=== PATIENT | male | born 1945 | race Caucasian/White ===

== ENCOUNTER 2021-09-26 20:58 | Inpatient (IN) ==
[2021-09-26 21:57] LABS: Hemoglobin 8.1 g/dL (12.9-16.9); Mean Corpuscular Volume 103.7 fL (83.0-100.0); Nucleated Red Blood Cells 0.1 /100 WBC (0)
[2021-09-26 21:59] LABS: Hematocrit 25.4 % (37.5-50.1); Immature Platelets 9.2 % (1.1-6.1); Mean Corpuscular HGB Conc 31.9 g/dL (31.6-35.5); Mean Corpuscular Hemoglobin 33.1 pg (28.0-33.3); Mean Platelet Volume 11.2 fL (9.4-12.4); Red Blood Count 2.45 M/mcL (4.19-5.50)
[2021-09-26 22:04] LABS: INR 1.3
[2021-09-26 22:07] LABS: Activated Partial Thrombo Time 35.9 Seconds (26.0-36.0)
[2021-09-26 22:22] LABS: Platelet Count 62 K/mcL (140-400)
[2021-09-26 22:24] LABS: Albumin/Globulin Ratio 0.9 (1.1-2.2); Bilirubin,Direct 0.1 mg/dL (0.0-0.2); Bilirubin,Indirect 0.4 mg/dL (0.0-1.0); Bilirubin,Total 0.5 mg/dL (0.3-1.0); Globulin 3.3 g/dL (2.4-3.5); Potassium 3.7 mEq/L (3.5-5.1); Total Protein 6.3 g/dL (6.4-8.9); Troponin I 0.08 ng/mL (< 0.04); White Blood Count 63.1 K/mcL (4.3-11.1)
[2021-09-26 22:26] LABS: Lymphocytes # 6.3 K/mcL (0.6-4.6); Monocytes # 1.9 K/mcL (0.0-1.3); Neutrophils # 53.6 K/mcL (1.6-8.9)
[2021-09-26 22:27] LABS: Smudge Cells Present (Not Present)
[2021-09-26 22:28] LABS: Platelet Estimate Decreased (Normal)
[2021-09-26] MEDS ORDERED: Vancomycin 1,500 MG/265 ML IV.SOLN IVPB ONE (22:32)
[2021-09-26] MEDS ORDERED: Isovue-370 500 ML BOTTLE IVP ONE (22:34)
[2021-09-26] MEDS ORDERED: Cefepime HCl 2,000 MG in 0.9 % Sodium Chloride Mini Bag 100 ML IVPB ONE (23:00)
[2021-09-27] MEDS ORDERED: Melatonin 3 MG TABLET PO PRN (02:15)
[2021-09-27] MEDS ORDERED: Naloxone 0.4 MG/ML INJ IVP PRN (02:15)
[2021-09-27] MEDS ORDERED: Ondansetron ODT 4 MG TAB.RAPDIS SL PRN (02:15)
[2021-09-27] MEDS ORDERED: Acetaminophen 325 MG TABLET PO PRN (02:16)
[2021-09-27] MEDS ORDERED: 0.9 % Sodium Chloride 1,000 ML IVC SCH (02:30)
[2021-09-27] MEDS ORDERED: *HR* Dextrose 50 % in Water (Syg) 50 ML SYRINGE IVP PRN (03:51)
[2021-09-27] MEDS ORDERED: D5% in Water 1,000 ML IVC PRN (03:51)
[2021-09-27] MEDS ORDERED: Dextrose Gel 15 GM/37.5 ML TUBE PO PRN ×2 (03:51)
[2021-09-27 03:53] LABS: Hemoglobin 7.9 g/dL (12.9-16.9); Nucleated Red Blood Cells 0.2 /100 WBC (0); Red Cell Distribution Width 15.2 % (11.5-14.5)
[2021-09-27 03:55] LABS: Hematocrit 24.3 % (37.5-50.1); Immature Platelets 8.7 % (1.1-6.1); Mean Corpuscular HGB Conc 32.5 g/dL (31.6-35.5); Mean Corpuscular Hemoglobin 33.9 pg (28.0-33.3); Mean Corpuscular Volume 104.3 fL (83.0-100.0); Red Blood Count 2.33 M/mcL (4.19-5.50)
[2021-09-27] MEDS ORDERED: Insulin LISPRO 300 UNITS/3 ML VIAL SUBQ SCH ×3 (04:00→07:30)
[2021-09-27 04:12] LABS: Magnesium 1.5 mg/dL (1.6-2.6); Phosphorous 2.4 mg/dL (2.7-4.5)
[2021-09-27 04:13] LABS: Calcium 8.7 mg/dL (8.6-10.3); Potassium 3.6 mEq/L (3.5-5.1); White Blood Count 58.9 K/mcL (4.3-11.1)
[2021-09-27 04:14] LABS: Platelet Count 63 K/mcL (140-400)
[2021-09-27] MEDS ORDERED: 0.9 % Sodium Chloride 500 ML IVC PRN (04:15)
[2021-09-27] MEDS ORDERED: Magnesium Sulfate 1 GM/102 ML PIGGYBACK IVPB ONE (04:15)
[2021-09-27 04:25] LABS: Platelet Estimate Decreased (Normal)
[2021-09-27 04:26] LABS: Lymphocytes # 4.7 K/mcL (0.6-4.6); Monocytes # 2.4 K/mcL (0.0-1.3); Neutrophils # 51.8 K/mcL (1.6-8.9)
[2021-09-27 04:43] LABS: Bilirubin,Urine Negative (Negative); Blood,Urine Moderate (Negative); Clarity,Urine Clear (Clear); Color,Urine Light-Yellow (Yellow); Glucose,Urine (UA) Normal (Normal); Ketones,Urine Negative (Negative); Leukocyte Esterase,Urine Negative (Negative); Mucus,Urine Few per lpf (None-Few); Nitrite,Urine Negative (Negative); PH,Urine 7.5 pH Units (5.0-8.0); Protein,Urine Negative (Neg-Trace); RBC,Urine 15-30 per hpf (0-3); Specific Gravity,Urine 1.026 (1.010-1.025); Urobilinogen,Urine Normal (Normal)
[2021-09-27] MEDS ORDERED: Cefepime HCl 2,000 MG in 0.9 % Sodium Chloride 10 ML IVP SCH (06:00)
[2021-09-27 06:51] VITALS: BP 143/61; PULSE 99; TEMP 98.3; O2SAT 93
[2021-09-27] MEDS ORDERED: Furosemide 40 MG/4 ML VIAL IVP SCH (09:00)
[2021-09-27] MEDS ORDERED: Vancomycin 1,500 MG/265 ML IV.SOLN IVPB SCH (23:00)
== END 2021-09-27 08:19 | disposition left against medical advice (07) | DRG 871 ==
LOC: 3NENU 20:58 → EMEROOARM 20:58 → 3NENU 09-27 01:21 → SUATTDRO 09-27 02:16
PROVIDERS: ADMIT Internal Medicine; ATTEND Internal Medicine